=== PATIENT | female | born 1955 | race African-American/Black ===

== ENCOUNTER 2019-09-29 16:22 | Emergency (ER) | payer OTHER ==
[2019-09-29 16:37] VITALS: BP 142/84; PULSE 76; BMI 25.7
--- NOTE | 2019-09-29 17:15 | PDOC ---
History of Present Illness - General Chief Complaint: Pain Stated Complaint: FACE SWOLLEN L SIDE Time Seen by Provider: 09/29/19 16:45 History Source: Patient Exam Limitations: No Limitations Past History - Travel Traveled outside of the country in the last 30 days: No Close contact w/someone who was outside of country & ill: No - Past Medical History Allergies/Adverse Reactions: Allergies Allergy/AdvReac Type Severity Reaction Status Date / Time strawberry [Conifer] Allergy Verified 07/18/13 21:07 Home Medications: Ambulatory Orders Amox-Tr/K Cl [Augmentin - 875Mg Tablet] 1 tab PO BID #14 tablet 09/29/19 Cyclobenzaprine HCl [Flexeril -] 10 mg PO HS #10 tablet 09/29/19 Ibuprofen 600 mg PO Q6H #30 tablet 09/29/19 Cardiac Disorders: Yes - Surgical History Appendectomy: Yes Cholecystectomy: Yes - Psycho Social/Smoking Cessation Hx Smoking Status: Yes Smoking History: Never smoked Number of Cigarettes Smoked Daily: 3 Information on smoking cessation initiated: No Hx Alcohol Use: No Drug/Substance Use Hx: No Review of Systems - Review of Systems Able to Perform ROS?: Yes Comments:: 09/29/19 17:04 CONSTITUTIONAL: Absent: fever, chills, diaphoresis, generalized weakness, malaise, loss of appetite HEENT: Present: L facial swelling Absent: rhinorrhea, nasal congestion, throat pain, throat swelling, difficulty swallowing, mouth swelling, ear pain, eye pain, visual Changes MUSCULOSKELETAL: Present: Midback pain Absent: myalgia, arthralgia, joint swelling SKIN: Absent: rash, itching, pallor NEUROLOGIC: Absent: headache, focal weakness or paresthesias, dizziness, unsteady gait, seizure, mental status changes, bladder or bowel incontinence PSYCHIATRIC: Absent: anxiety, depression, suicidal or homicidal ideation, hallucinations. Is the patient limited Pashto proficient: No *Physical Exam - Vital Signs Last Vital Signs Temp Pulse Resp BP Pulse Ox 76 18 142/84 100 09/29/19 16:34 09/29/19 16:34 09/29/19 16:34 09/29/19 16:34 - Physical Exam 09/29/19 17:09 GENERAL: Well developed, well nourished. Awake and alert. No acute distress. HEENT: Normocephalic, atraumatic. PERRLA, EOMI. No conjunctival pallor. Sclera are non- icteric. Moist mucous membranes. Oropharynx is clear. Swelling noted to the L lower jaw. No induration felt. Tooth 21 with inflamed gums and redness. NECK: Supple. Full ROM. No lymphadenopathy. PULMONARY: No evidence of respiratory distress. Lungs clear to auscultation bilaterally. No wheezing, rales or rhonchi. MUSCULOSKELETAL TTP of the L rhomboid with palpable spasm. Normal range of motion at all joints. No bony deformities or tenderness. No CVA tenderness. SKIN: Warm and dry. Normal capillary refill. No rashes. No jaundice. NEUROLOGICAL: Alert, awake, appropriate. Cranial nerves 2-12 intact. No deficits to light touch and temperature in face, upper extremities and lower extremities. No motor deficits in the in face, upper extremities and lower extremities. Normoreflexic in the upper and lower extremities. Normal speech. Toes are down- going bilaterally. Gait is normal without ataxia. PSYCHIATRIC: Cooperative. Good eye contact. Appropriate mood and affect. Medical Decision Making - Medical Decision Making 09/29/19 19:23 The patient is a 64 y/o F who presents to the ER with left sided jaw pain and left mid back pain. She states that she also noted swelling to her left lower jaw. She states that she feels like she has a tightness in her back that will go away. Denies fevers, chills, nausea, vomiting and diarrhea. A/P: Muscle spasm/dental infection On exam there is swelling noted to tooth 21 with associated redness consistent with infection. Jaw swelling likely d/t dental infection; will place on augmentin Patient with a palpable spasm to the left rhomboid. Pain is reproducible. We will treat with Motrin and Flexeril. Discharge home with both dental and primary care follow-up. I discussed the physical exam findings, ancillary test results and final diagnoses with the patient. I answered all of the patient's questions. The patient was satisfied with the care received and felt comfortable with the discharge plan and treatment plan. The Patient agrees to follow up with the primary care physician/specialist within 24-72 hours. Return precautions were given. Discharge - Discharge Information Problems reviewed: Yes Clinical Impression/Diagnosis: Dental infection, Muscle spasm Condition: Stable Disposition: HOME - Admission No - Additional Discharge Information Prescriptions: Amox-Tr/K Cl [Augmentin - 875Mg Tablet] 1 tab PO BID #14 tablet Cyclobenzaprine HCl [Flexeril -] 10 mg PO HS #10 tablet Ibuprofen 600 mg PO Q6H #30 tablet - Follow up/Referral Referrals: Marely Mandel MD [Primary Care Provider] - - Patient Discharge Instructions Patient Printed Discharge Instructions: DI for Dental Pain, DI for Muscle Spasm Additional Instructions: Your evaluated for your facial swelling today and your upper back pain. The facial swelling is due to a dental infection. Please take the Augmentin twice a day for 1 week. Take the medication with food. You may also take ibuprofen to help with the swelling and upper back pain. Your upper back pain is due to a muscle spasm. Please take the muscle relaxer at night before bed to help with the pain. Do not drink or drive after taking this medication as it may make you drowsy. Follow-up with your dentist on Tuesday. Return to the ER for increased swelling, fever, swelling on the right side of the face in addition or if you have any changes in your symptoms. [facility]: [phone] [address] [place], [address] [facility] [phone] [place] [address], [id number] - Post Discharge Activity
== END 2019-09-29 17:24 | disposition home or self-care (01) ==
LOC: JERFT 16:22
DX: K04.7 Periapical abscess without sinus (principal); M62.830 Muscle spasm of back; Z91.018 Allergy to other foods
CPT/HCPCS: 99282-25

== ENCOUNTER 2022-04-08 16:45 | Emergency (ER) | payer OTHER ==
[2022-04-08 17:03] VITALS: BP 106/72; PULSE 86; RESP 20; TEMP 98; BMI 25.4
[2022-04-08] MEDS ORDERED: DIPHTH,PERTUSS(ACELL),TET 0.5 ML DISP.SYRIN IM ONE ×2 (19:09)
== END 2022-04-08 19:53 | disposition home or self-care (01) ==
LOC: JER 16:45
PROC: 3E0234Z Introduction of Serum, Toxoid and Vaccine into Muscle, Percutaneous Approach (ICD-10-PCS; principal; 2022-04-08)
DX: I83.899 Varicose veins of unspecified lower extremity with other complications (principal)
CPT/HCPCS: 90471; 90715; 99283-25

== ENCOUNTER 2024-06-09 00:51 | Emergency (ER) | payer OTHER ==
[2024-06-09 00:56] VITALS: BMI 22.3
[2024-06-09] MEDS ORDERED: KETOROLAC TROMETHAMINE 30 MG/1 ML VIAL ONE (01:40)
[2024-06-09] MEDS ORDERED: METHOCARBAMOL 500 MG TABLET ONE (01:40)
[2024-06-09] MEDS ORDERED: LIDOCAINE 4% PATCH TP ONE (01:40)
[2024-06-09] MEDS ORDERED: DEXAMETHASONE SOD PHOSPHATE 10 MG/1 ML VIAL ONE (01:49)
[2024-06-09] MEDS: LIDOCAINE 5% TOPICAL PATCH TP ONE (01:51)
[2024-06-09] MEDS: KETOROLAC TROMETHAMINE 30 MG/1 ML VIAL IM ONE (01:52)
[2024-06-09] MEDS: METHOCARBAMOL 500 MG TABLET PO ONE (01:52)
[2024-06-09] MEDS: DEXAMETHASONE SOD PHOSPHATE 10 MG/1 ML VIAL IM ONE (02:02)
[2024-06-09 03:42] LABS: HIV INTERPRETATION NEGATIVE (NEGATIVE)
[2024-06-09 05:04] VITALS: RESP 16; TEMP 97.6
[2024-06-09 08:50] VITALS: BP 122/76; PULSE 70
== END 2024-06-09 08:50 | disposition home or self-care (01) ==
LOC: JER 00:51
PROC: 3E023GC Introduction of Other Therapeutic Substance into Muscle, Percutaneous Approach (ICD-10-PCS; principal; 2024-06-09)
PROC: 3E0133Z Introduction of Anti-inflammatory into Subcutaneous Tissue, Percutaneous Approach (ICD-10-PCS; 2024-06-09)
DX: M25.552 Pain in left hip (principal); R29.898 Other symptoms and signs involving the musculoskeletal system
CPT/HCPCS: 36415; 72170-TC-FY; 72192-TC; 73502-TC-LT-FY; 86803; 87389; 87522; 96372; 99285-25; J1100